=== PATIENT | male | born 1940 | race Hispanic/Latino ===

== ENCOUNTER 2017-03-25 08:28 | Emergency (ER) | payer BC, MEDICARE ==
[2017-03-25 08:37] VITALS: BP 145/74; PULSE 82; RESP 16; TEMP 98.5; O2SAT 97; BMI 37.4
--- NOTE | 2017-03-25 09:01 | ED PDOC ---
Arrival/HPI - General Chief Complaint: ENT Problem Time Seen by Provider: 03/25/17 08:57 - History of Present Illness Narrative History of Present Illness (Text): 03/25/17 09:01 76yo male with sore throat x1 day, states it started yesterday. Denies any difficulty swallowing, c/o pain. No cough, no gutierrez, no f/c. Denies other complaints. Past Medical History - Provider Review Nursing Documentation Reviewed: Yes - Infectious Disease Hx of Infectious Diseases: None - Cardiac Hx Cardiac Disorders: Yes Hx Hypertension: Yes - Pulmonary Hx Respiratory Disorders: No - Neurological Hx Neurological Disorder: Yes Hx Dizziness: Yes - HEENT Hx HEENT Disorder: No - Renal Hx Renal Disorder: No - Endocrine/Metabolic Hx Endocrine Disorders: No - Hematological/Oncological Hx Blood Disorders: No - Integumentary Hx Dermatological Disorder: No - Musculoskeletal/Rheumatological Hx Falls: No Hx Fractures: Yes (skull fx with surgery) - Gastrointestinal Hx Gastrointestinal Disorders: No - Genitourinary/Gynecological Hx Genitourinary Disorders: No - Psychiatric Hx Psychophysiologic Disorder: No Hx Depression: No Hx Emotional Abuse: No Hx Physical Abuse: No Hx Substance Use: No - Surgical History Hx Cardiac Catheterization: Yes Hx Coronary Stent: Yes Hx Open Heart Surgery: Yes Other/Comment: skull fx with surgery - Anesthesia Hx Anesthesia: Yes Hx Anesthesia Reactions: No Hx Malignant Hyperthermia: No - Suicidal Assessment Feels Threatened In Home Enviroment: No Family/Social History Family/Social History: Unknown Family HX Smoking Status: Former Smoker Hx Alcohol Use: No Hx Substance Use: No Hx Substance Use Treatment: No Allergies/Home Meds Allergies/Adverse Reactions: Allergies PORK Allergy (Verified 01/11/15 08:22) RASH Home Medications: Home Meds Medication Instructions Recorded Confirmed Esomeprazole Magnesium [Nexium] 40 mg PO DAILY 01/11/15 03/25/17 Lisinopril [Prinivil] 10 mg PO DAILY 01/11/15 03/25/17 Rosuvastatin Calcium [Crestor] 10 mg PO DAILY 01/11/15 03/25/17 Aspirin [Aspirin Chewable] 81 mg PO DAILY 03/25/17 03/25/17 Furosemide [Lasix] 40 mg PO DAILY 03/25/17 03/25/17 Metoprolol Chu/Hydrochlorothiaz 1 tab PO DAILY 03/25/17 03/25/17 [Metoprolol ER-Hctz 100-12.5 mg] Physical Exam - Physical Exam Narrative Physical Exam (Text): 03/25/17 09:02 - Review of Systems Constitutional: Normal. absent: Fatigue, Weight Change, Fevers Eyes: Normal ENT: sore throat, denies tristhmus Respiratory: Normal. absent: SOB, Cough, Sputum Cardiovascular: absent: Chest Pain, Palpitations, Syncope Gastrointestinal: Normal. absent: Abdominal Pain, Diarrhea, Nausea, Vomiting Genitourinary: Normal. absent: Dysuria, Frequency, Hematuria Musculoskeletal: Normal. absent: Arthralgias, Back Pain, Neck Pain Skin: no rashes, no erythema Neurological: absent: Focal Weakness Endocrine: Normal Hemo/Lymphatic: Normal Psychiatric: No suicidal or homicidal ideations - Physical exam Patient appears age appropriate, speaking full sentences without difficulty - Systems Exam Head: Present: Atraumatic, Normocephalic Pupils: Present: PERRL Extraocular Muscles: Present: EOMI Conjunctiva: Present: Normal ENT: Erythematous posterior pharynx, No pain with hyoid manipulation, No muffled voice, no floor of mouth pain or elevation Mouth: Present: Moist Mucous Membranes Neck: Present: Normal Range of Motion. No: MIDLINE TENDERNESS, Paraspinal Tenderness Respiratory/Chest: Present: Clear to Auscultation, Good Air Exchange. No: Respiratory Distress, Accessory Muscle Use, Tachypneic Cardiovascular: Present: Regular Rate and Rhythm, Normal S1, S2, Peripheral Pulses Present. No: Murmurs Abdomen: Present: Normal Bowel Sounds, No: Tenderness, Peritoneal Signs, Rebound, Guarding, Distention Back: Present: Normal Inspection. No: Midline Tenderness, Paraspinal Tenderness Upper Extremity: Present: Normal Inspection. No: Cyanosis, Edema Lower Extremity: Present: Normal Inspection. No: Edema Neurological: Present: GCS=15, Speech Normal, cranial nerves II through XII fully intact with no cerebellar abnormality, neuro-sensory fully intact. No focal neurological deficits. Skin: Present: Warm, Dry, Normal Color. No: Rashes Lymphatic: Present: OX3, NI, NC Psychiatric: Present: Alert, Oriented x 3, Normal Insight, Normal Concentration Vital Signs Reviewed: Yes Vital Signs Temp Pulse Resp BP Pulse Ox 03/25/17 08:34 98.5 F 82 16 145/74 97 Temperature: Afebrile Blood Pressure: Normal Pulse: Regular Respiratory Rate: Normal Appearance: Positive for: Well-Appearing Pain Distress: None Mental Status: Positive for: Alert and Oriented X 3 Medical Decision Making ED Course and Treatment: 03/25/17 09:03 76yo male with sore throat. Pt is well appearing, afebrile, no acute findings on physical exam. states that this happens annually, he gets a zpack from Dr. Engel and symptoms resolve rx provided pt instructed to follow up with PMD in 1-2 days Pt states he understands to return to the ER right away for new or worsening symptoms or for inability to f/u with PMD or specialist as instructed. Patient states that he fully agrees with and understands discharge instructions. States that he agrees with the plan and disposition. Verbalized and repeated discharge instructions and plan. I have given the patient opportunity to ask any additional questions. Disposition/Present on Arrival - Present on Arrival Any Indicators Present on Arrival: No History of DVT/PE: No History of Uncontrolled Diabetes: No Urinary Catheter: No History of Decub. Ulcer: No History Surgical Site Infection Following: None - Disposition Have Diagnosis and Disposition been Completed?: Yes Diagnosis: Sore throat Disposition: HOME/ ROUTINE Disposition Time: 08:58 Patient Plan: Discharge Condition: GOOD Discharge Instructions (ExitCare): Pharyngitis (ED) Additional Instructions: PLEASE RETURN TO THE EMERGENCY DEPARTMENT FOR NEW OR WORSENING SYMPTOMS. RETURN RIGHT AWAY IF YOU CANNOT FOLLOW UP WITH YOUR PRIMARY CARE DOCTOR, CLINIC, OR SPECIALIST IN 1-2 DAYS. Prescriptions: Azithromycin [Zithromax] 250 mg PO DAILY #1 packet Referrals: Yash Engel MD [Primary Care Provider] - Follow up with primary
== END 2017-03-25 09:17 | disposition home or self-care (01) ==
LOC: ED 08:28
DX: J02.9 Acute pharyngitis, unspecified (principal)

== ENCOUNTER 2018-04-20 08:56 | Emergency (ER) | payer MEDICARE, BC ==
[2018-04-20 08:57] VITALS: BMI 37.4
[2018-04-20 09:27] VITALS: RESP 18; TEMP 97.9
--- NOTE | 2018-04-20 09:37 | ED PDOC ---
Arrival/HPI - General Chief Complaint: Lower Extremity Problem/Injury Time Seen by Provider: 04/20/18 09:34 Historian: Patient - History of Present Illness Narrative History of Present Illness (Text): 04/20/18 09:34 This 77 yo male with pmh Gout, presents to this ED c/o right foot pain x 1 day. Patient stated his gout is "acting up". He stated foot pain resembles his symptoms of gout he has had in the past. Patient admits eating " a lot of Meat ". Patient denies recent trauma, skin redness, ecchymosis, skin ulcers, heavy lifting, calf pain, or leg swelling. I offered patient x-rays of his right foot, which he refused for now. He said he has an appointment to see "gout" specialist on May 08. Time/Duration: Other (see hpi) Quality: Aching Context: Home Past Medical History - Provider Review Nursing Documentation Reviewed: Yes - Infectious Disease Hx of Infectious Diseases: None - Cardiac Hx Cardiac Disorders: Yes Hx Hypertension: Yes - Pulmonary Hx Respiratory Disorders: No - Neurological Hx Neurological Disorder: Yes Hx Dizziness: Yes - HEENT Hx HEENT Disorder: No - Renal Hx Renal Disorder: No - Endocrine/Metabolic Hx Endocrine Disorders: No - Hematological/Oncological Hx Blood Disorders: No - Integumentary Hx Dermatological Disorder: No - Musculoskeletal/Rheumatological Hx Falls: No Hx Fractures: Yes (skull fx with surgery) - Gastrointestinal Hx Gastrointestinal Disorders: No - Genitourinary/Gynecological Hx Genitourinary Disorders: No - Psychiatric Hx Psychophysiologic Disorder: No Hx Depression: No Hx Emotional Abuse: No Hx Physical Abuse: No Hx Substance Use: No - Surgical History Hx Cardiac Catheterization: Yes Hx Coronary Stent: Yes (x 4) 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) Other/Comment: skull fx with surgery - Anesthesia Hx Anesthesia: Yes Hx Anesthesia Reactions: No Hx Malignant Hyperthermia: No - Suicidal Assessment Feels Threatened In Home Enviroment: No Family/Social History - Physician Review Nursing Documentation Reviewed: Yes Family/Social History: Other (noncontributory) Smoking Status: Former Smoker Hx Alcohol Use: No Hx Substance Use: No Hx Substance Use Treatment: No Allergies/Home Meds Allergies/Adverse Reactions: Allergies PORK Allergy (Verified 01/11/15 08:22) RASH Home Medications: Home Meds Medication Instructions Recorded Confirmed Esomeprazole Magnesium [Nexium] 40 mg PO DAILY 01/11/15 03/25/17 Lisinopril [Prinivil] 10 mg PO DAILY 01/11/15 03/25/17 Rosuvastatin Calcium [Crestor] 10 mg PO DAILY 01/11/15 03/25/17 Aspirin [Aspirin Chewable] 81 mg PO DAILY 03/25/17 03/25/17 Furosemide [Lasix] 40 mg PO DAILY 03/25/17 03/25/17 Metoprolol Chu/Hydrochlorothiaz 1 tab PO DAILY 03/25/17 03/25/17 [Metoprolol ER-Hctz 100-12.5 mg] Review of Systems - Review of Systems Constitutional: Normal. absent: Fatigue, Weight Change, Fevers, Night Sweats Eyes: Normal ENT: Normal Respiratory: Normal Cardiovascular: Normal Gastrointestinal: Normal Genitourinary Male: Normal Musculoskeletal: Other (right foot pain) Skin: Normal Neurological: Normal Endocrine: Normal Hemo/Lymphatic: Normal Psychiatric: Normal Physical Exam Vital Signs Temp Pulse Resp BP Pulse Ox 04/20/18 10:28 76 18 148/78 99 04/20/18 08:57 97.9 F 75 18 164/77 H 96 Temperature: Afebrile Blood Pressure: Normal Pulse: Regular Respiratory Rate: Normal Appearance: Positive for: Well-Appearing, Non-Toxic, Comfortable Pain Distress: None Mental Status: Positive for: Alert and Oriented X 3 - Systems Exam Head: Present: Atraumatic, Normocephalic Pupils: Present: PERRL Extroacular Muscles: Present: EOMI Conjunctiva: Present: Normal Mouth: Present: Moist Mucous Membranes Neck: Present: Normal Range of Motion Upper Extremity: Present: Normal Inspection, Normal ROM Lower Extremity: Present: Normal Inspection, NORMAL PULSES, Normal ROM, Tenderness ((+) mild swelling and tender over right distal 4th metatarsal area. No deformity, ecchymosis, or erythema). No: Edema, CALF TENDERNESS, Irma's Sign Neurological: Present: GCS=15, CN II-XII Intact, Speech Normal, Motor Func Grossly Intact, Normal Sensory Function, Normal Cerebellar Funct, Gait Normal Skin: Present: Warm, Dry, Normal Color. No: Rashes Psychiatric: Present: Alert, Oriented x 3, Normal Insight, Normal Concentration Medical Decision Making ED Course and Treatment: 04/20/18 09:44 Patient was offered foot x-rays, and cane. He said he knows his foot pain is from gout, so x-rays it is not needed. He noted he has a cane at home. Patient only wants pain medication and for gout. 04/20/18 10:15 Re-evaluation. Patient feels better. Discussed results and plan with patient who expresses understanding. All questions answered and there is agreement with the plan to discharge home with instructions. Patient stable for discharge. Return if symptoms persist or worsen. Patient was recommended to f/u echocardiograph technician and Juice Weigher. Re-evaluation Time: 09:45 Reassessment Condition: Re-examined, Improved - Medication Orders Current Medication Orders: Discontinued Medications Colchicine (Colocrys) 1.2 mg PO STAT STA Stop: 04/20/18 09:38 Last Admin: 04/20/18 09:49 Dose: 1.2 mg Colchicine (Colocrys) 0.6 mg PO STAT STA Stop: 04/20/18 10:16 Last Admin: 04/20/18 10:27 Dose: 0.6 mg Ketorolac Tromethamine (Toradol) 30 mg IM STAT STA Stop: 04/20/18 09:39 Last Admin: 04/20/18 09:49 Dose: 30 mg MAR Pain Assessment Document 04/20/18 09:49 GMD (Rec: 04/20/18 09:49 GMD [id number]) Pain Reassessment Is this a pain reassessment? No IM Administration Charges Document 04/20/18 09:49 GMD (Rec: 04/20/18 09:49 GMD [id number]) Injection Site MAR Injection Site Left Deltoid Charges for Administration # of IM Administrations 1 Disposition/Present on Arrival - Present on Arrival Any Indicators Present on Arrival: No History of DVT/PE: No History of Uncontrolled Diabetes: No Urinary Catheter: No History of Decub. Ulcer: No History Surgical Site Infection Following: None - Disposition Have Diagnosis and Disposition been Completed?: Yes Diagnosis: Gout Disposition: HOME/ ROUTINE Disposition Time: 10:18 Patient Plan: Discharge Condition: GOOD Discharge Instructions (ExitCare): Lifestyle Changes to Manage Gout, Gout (DC) Additional Instructions: Call private doctor for follow up visit in 1-2 days. Take medication as instructed with food. Use cane during walk. Return to emergency if pain worsen , or if lower leg swells up Prescriptions: Indomethacin [Indocin] 50 mg PO TID PRN #30 cap PRN Reason: Pain, Severe (8-10) Referrals: Yash Engel MD [Primary Care Provider] - Follow up with primary Wilman Gray DPM [Staff Provider] - Follow up with primary Forms: [employer] ([place]an)
[2018-04-20 10:29] VITALS: BP 148/78; PULSE 76; O2SAT 99
== END 2018-04-20 10:29 | disposition home or self-care (01) ==
LOC: ED 08:56
DX: M10.9 Gout, unspecified (principal); I10 Essential (primary) hypertension; Z87.891 Personal history of nicotine dependence
CPT/HCPCS: 96372; 99284; J1885